=== PATIENT | female | born 1995 | race Caucasian/White ===

== ENCOUNTER 2017-10-17 10:34 | Emergency (ER) | payer OTHER ==
[~2017-10-17] VITALS: Ht 167.6 cm; Wt 79.4 kg
[2017-10-17 10:53] VITALS: BP 143/98; Ht 167.6 cm; Wt 79.4 kg
== END 2017-10-17 12:04 | disposition home or self-care (01) ==
LOC: ED 10:34
DX: S93.402A Sprain of unspecified ligament of left ankle, initial encounter (principal); W22.8XXA Striking against or struck by other objects, initial encounter; Y93.02 Activity, running; Y99.8 Other external cause status; Y92.89 Other specified places as the place of occurrence of the external cause